=== PATIENT | male | born 1955 | race Asian ===

== ENCOUNTER 2019-09-02 22:35 | Emergency (ER) | payer OTHER ==
[~2019-09-02] VITALS: Ht 177.8 cm; Wt 108.9 kg
[2019-09-02 23:06] LABS: PLATELET COUNT 211 K/uL (142-355)
[2019-09-02 23:24] LABS: POTASSIUM 3.5 mmol/L (3.6-5.2)
[2019-09-03 00:21] VITALS: BP 147/98; TEMP 97
[2019-09-03] MEDS ORDERED: FLUTMIS14 INH (02:26)
[2019-09-03] MEDS ORDERED: DIVA500T2 PO (02:26)
[2019-09-03] MEDS ORDERED: PROAIR HFA108 MCG/AC INH (02:27)
[2019-09-03] MEDS ORDERED: IPRA18AE INH (02:28)
[2019-09-03] MEDS ORDERED: DORZOLAMIDE HYD1 SOL OPTH (02:30)
[2019-09-03] MEDS ORDERED: ARNUITY EL50 MCG/ACT INH (02:31)
[2019-09-03] MEDS ORDERED: HALO5TAB10 PO (02:31)
[2019-09-03] MEDS ORDERED: TIROSINT50 MCG PO (02:32)
[2019-09-03] MEDS ORDERED: LISI10TA11 PO (02:32)
[2019-09-03] MEDS ORDERED: CLARITIN10 MG PO (02:34)
[2019-09-03] MEDS ORDERED: MONTELUKAST SOD10 MG PO (02:34)
[2019-09-03] MEDS ORDERED: PROPRANOLOL20 MG PO (02:35)
[2019-09-03] MEDS ORDERED: QUETIAPINE50 MG PO (02:38)
[2019-09-09] MEDS ORDERED: MEDR2.5T19 PO (08:24)
[2019-09-09] MEDS ORDERED: OLAN10INJ IM (08:24)
[2019-09-09] MEDS ORDERED: OLANZAPINE10 MG PO (08:24)
[2019-09-09] MEDS ORDERED: DIVA250T PO (08:25)
[2019-09-09] MEDS ORDERED: DIVA500T2 PO (08:25)
== END 2019-09-03 00:22 | disposition still patient (30) ==
LOC: ED 22:35
PROVIDERS: Emergency Medicine Emergency Medical Services
DX: F20.0 Paranoid schizophrenia (principal); Z04.6 Encounter for general psychiatric examination, requested by authority
CPT/HCPCS: 36415; 80053; 81000; 85027; 93005; 99285